=== PATIENT | female | born 1995 | race African-American/Black ===

== ENCOUNTER 2019-01-14 08:40 | Emergency (ER) | payer SELFPAY ==
[2019-01-14 09:53] LABS: BUN Blood Urea Nitrogen 9 mg/dL (7-18); Bicarbonate 26 mmol/L (21-32); Glucose Level 85 mg/dL (74-106); Magnesium 2.4 mg/dL (1.8-2.4); Sodium Level 142 mmol/L (136-145)
[2019-01-14 09:55] LABS: Absolute Lymphocytes (CBC) 1.7 K/uL (0.7-4.9); Absolute Monocytes 0.7 K/uL (0.1-1.3); Absolute Neutrophil 5.4 K/uL (1.8-8.0); Basophils % 0.4 % (0-1.3); Eosinophils % 0.1 % (0-4.4); Lymphocytes % 21.5 % (15.3-44.8); MPV 9.5 fL (7.6-11.3); Monocytes % 9.1 % (3.3-12.3); RBC Red Blood Cell Count 4.27 M/uL (3.86-4.86)
[2019-01-14] MEDS ORDERED: NA CHLORIDE 0.9% 1,000 ML ONE (09:56)
--- NOTE | 2019-01-14 10:45 | ER ---
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 Transition of care: patient was not received from another setting of care. Onset of symptoms was January 14, 2019. Risk Assessment: Do you want to hurt yourself or someone else? Patient reports no desire to harm self or others. Care prior to arrival: None. 08:52 Method Of Arrival: Ambulatory hb 08:52 Acuity: BRIDGER 3 hb 09:15 Initial Sepsis Screen: Does the patient meet any 2 criteria? No. Patient's initial sv sepsis screen is negative. Does the patient have a suspected source of infection? No. Patient's initial sepsis screen is negative. 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 - Social history:: Smoking status: Patient/guardian denies using tobacco. - Ebola Screening: : No symptoms or risks identified at this time. Screenin:55 Abuse screen: Denies threats or abuse. Denies injuries from another. Nutritional sv screening: No deficits noted. Tuberculosis screening: No symptoms or risk factors identified. Fall Risk None identified. Assessment: 09:15 General: Appears in no apparent distress. uncomfortable, slender, well groomed, well sv developed, Behavior is calm, cooperative, appropriate for age. Pain: Denies pain. Neuro: Level of Consciousness is awake, alert, obeys commands, Oriented to person, place, time, situation, Moves all extremities. Full function Gait is steady, Speech is normal. Neuro: Reports blurred vision in right eye and left eye since this morning weakness since this morning. Respiratory: Respiratory effort is even, unlabored, Respiratory pattern is regular, symmetrical. Respiratory: Denies cough, shortness of breath. Derm: Skin is pink, warm \\T\\ dry. Musculoskeletal: Range of motion: intact in all extremities. 09:52 Reassessment: Patient appears in no apparent distress at this time. No changes from sv previously documented assessment. Patient and/or family updated on plan of care and expected duration. Pain level reassessed. Patient is alert, oriented x 3, equal unlabored respirations, skin warm/dry/pink. Vital Signs: 08:57 BP 112 / 85; Pulse 78; Resp 16; Temp 98.1; Pulse Ox 100% on R/A; Pain 0/10; hb 09:19 BP 112 / 62 LA Supine (auto/lg); Pulse 68; sv 09:21 BP 113 / 65 LA Sitting (auto/lg); Pulse 72; sv 09:23 BP 109 / 68 LA Standing (/lg); Pulse 83; sv Visual Acuity: 09:07 Left Eye Visual acuity 20/40, ; Right Eye Visual acuity 20/15, ; Both Eyes Visual sv acuity 20/15; Without Lenses; ED Course: 08:44 Patient arrived in ED. tw3 08:48 Wolf Shook PA is PHCP. cp 08:48 Justin Daniels MD is Attending Physician. cp 08:54 Triage completed. hb 08:54 Wilma Scott, KEVIN is Primary Nurse. sv 08:55 Arm band placed on. sv 08:55 Patient has correct armband on for positive identification. sv 09:15 Pulse ox on. NIBP on. sv 09:15 Initial lab(s) drawn, by il, sent to lab. Inserted saline lock: 20 gauge in right sv antecubital area, using aseptic technique. Blood collected. Flushed right antecubital with 5 ml normal saline. 09:49 EKG done, by outer diameter technician. reviewed by Wolf MANN. at1 10:01 Report given to Kimber BROWN. Door closed. Warm blanket given. Head of bed elevated. sv 10:08 Kimber Mcelroy, KEVIN is Primary Nurse. aj1 10:52 No provider procedures requiring assistance completed. IV discontinued, intact, hb bleeding controlled, No redness/swelling at site. Pressure dressing applied. Administered Medications: 09:52 Drug: NS 0.9% 1000 ml Route: IV; Rate: 1 bolus; Site: right antecubital; sv Outcome: 10:45 Discharge ordered by MD. cp 10:52 Discharged to home ambulatory. hb 10:52 Condition: stable 10:52 Discharge instructions given to patient, Instructed on discharge instructions, follow up and referral plans. Demonstrated understanding of instructions, follow-up care. 10:58 Patient left the ED. hb Signatures: Kimber Mcelroy RN RN aj1 Wilma Scott RN RN sv Minnie Moct[place]uma, shoe sprayer EKG Tat1 Wolf Shook PA PA cp Baxter, Heather RN RN gloria Clarke, Angela tw3
--- NOTE | 2019-01-14 10:46 | EDPHYS ---
Physician Documentation [facility] Name: Stalin Helm Age: 23 yrs Sex: Female : 1995 Arrival Date: 01/14/2019 Time: 08:44 Bed 20 Private MD: ED Physician Justin Daniels HPI: 01/14 09:00 This 23 yrs old Black Female presents to ER via Ambulatory with complaints of General cp Weakness, Blurred Vision. 09:00 The patient is experiencing blurred vision, to both eyes. Onset: The symptoms/episode cp began/occurred this morning. Duration: the symptoms are intermittent. Associated signs and symptoms: Pertinent positives: dizziness, general weakness, Pertinent negatives: ear ache, fever, headache, sinus pain. 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 - Social history:: Smoking status: Patient/guardian denies using tobacco. - Ebola Screening: : No symptoms or risks identified at this time. ROS: 09:05 Constitutional: Positive for fatigue, Negative for body aches, chills, fever, poor PO cp intake, weight loss. 09:05 Eyes: Positive for blurry vision, Negative for discharge, pain, redness, vision loss. 09:05 Cardiovascular: Negative for chest pain, edema, palpitations. 09:05 Respiratory: Negative for cough, shortness of breath, wheezing. 09:05 Abdomen/GI: Negative for abdominal pain, nausea, vomiting, and diarrhea, constipation, anorexia, black/tarry stool, rectal bleeding. 09:05 Back: Negative for pain at rest, pain with movement. 09:05 : Negative for urinary symptoms, vaginal bleeding. 09:05 Skin: Negative for rash. 09:05 Neuro: Positive for dizziness, general weakness, Negative for altered mental status, gait disturbance, headache, speech changes, syncope. 09:05 All other systems are negative. Exam: 09:20 Constitutional: The patient appears in no acute distress, alert, awake, cp non-diaphoretic, non-toxic, well developed, well nourished. 09:20 Head/Face: Normocephalic, atraumatic. cp 09:20 Eyes: Periorbital structures: appear normal, Pupils: equal, round, and reactive to light and accomodation, Extraocular movements: intact throughout, Conjunctiva: normal, no exudate, no injection, Sclera: no appreciated abnormality, Lids and lashes: appear normal, bilaterally. 09:20 ENT: External ear(s): are unremarkable, Ear canal(s): are normal, clear, TM's: are normal, no evidence of bulging, no erythema, dullness, bilaterally, Nose: is normal, Mouth: Lips: moist, Oral mucosa: pink and intact, moist, Posterior pharynx: is normal, airway is patent, no erythema, no exudate. 09:20 Neck: ROM/movement: is normal, is supple, without pain, no range of motions limitations, no meningismus, no nuchal rigidity. 09:20 Chest/axilla: Inspection: normal, Palpation: is normal, no crepitus, no tenderness. 09:20 Cardiovascular: Rate: normal, Rhythm: regular, Heart sounds: murmur, not appreciated, Edema: is not appreciated, JVD: is not appreciated. 09:20 Respiratory: the patient does not display signs of respiratory distress, Respirations: normal, no use of accessory muscles, no retractions, no splinting, no tachypnea, labored breathing, is not present, Breath sounds: are clear throughout, no decreased breath sounds, no stridor, no wheezing. 09:20 Abdomen/GI: Inspection: abdomen appears normal, Palpation: abdomen is soft and non-tender, in all quadrants. 09:20 Back: pain, is absent, ROM is normal. 09:20 Skin: no rash present. 09:20 Neuro: Orientation: to person, place \T\ time. Mentation: is normal, Cerebellar function: is grossly normal, Motor: is normal, Sensation: is normal. 09:34 ECG was reviewed by the Attending Physician. cp Vital Signs: 08:57 BP 112 / 85; Pulse 78; Resp 16; Temp 98.1; Pulse Ox 100% on R/A; Pain 0/10; hb 09:19 BP 112 / 62 LA Supine (auto/lg); Pulse 68; sv 09:21 BP 113 / 65 LA Sitting (auto/lg); Pulse 72; sv 09:23 BP 109 / 68 LA Standing (/lg); Pulse 83; sv Visual Acuity: 09:07 Left Eye Visual acuity 20/40, ; Right Eye Visual acuity 20/15, ; Both Eyes Visual sv acuity 20/15; Without Lenses; MDM: 08:51 Patient medically screened. cp 09:00 Differential diagnosis: dehydration, cardiac arrythmia, electrolyte abnormality, cp , anemia. 10:44 Data reviewed: vital signs, nurses notes, lab test result(s), EKG, and as a result, I cp will discharge patient. 10:44 Test interpretation: by ED physician or midlevel provider: ECG. 10:44 Counseling: I had a detailed discussion with the patient and/or guardian regarding: the cp historical points, exam findings, and any diagnostic results supporting the discharge/admit diagnosis, lab results, the need for outpatient follow up, for definitive care, a family practitioner, to return to the emergency department if symptoms worsen or persist or if there are any questions or concerns that arise at home. 10:44 Response to treatment: Improved, and as a result, I will discharge patient. 01/14 08:53 Order name: Glucose, Ancillary Testing; Complete Time: 08:56 EDMS 01/14 08:56 Interpretation: Reviewed. 01/14 08:58 Order name: Magnesium; Complete Time: 09:57 cp 01/14 08:58 Order name: EKG; Complete Time: 08:58 cp 01/14 08:58 Order name: BMP; Complete Time: 09:57 01/14 09:57 Interpretation: Normal except: CL 109. 01/14 08:58 Order name: CBC with Diff; Complete Time: 09:57 01/14 09:57 Interpretation: Normal except: HGB 9.4; HCT 31.0; MCV 72.4; MCH 22.0; MCHC 30.4; RDW cp 16.5. 01/14 08:58 Order name: Orthostatics; Complete Time: 09:26 cp 01/14 08:58 Order name: EKG - Nurse/Tech; Complete Time: 09:52 cp 01/14 08:58 Order name: Visual Acuity; Complete Time: 09:26 cp EC:34 Rate is 77 beats/min. Rhythm is regular. ME interval is normal. QRS interval is normal. cp QT interval is normal. T waves are Flattened in lead aVL. Interpreted by me. Reviewed by me. Administered Medications: 09:52 Drug: NS 0.9% 1000 ml Route: IV; Rate: 1 bolus; Site: right antecubital; sv Disposition: 11:00 Chart complete. cp 11:03 Co-signature as Attending Physician, Justin Daniels MD. rn Disposition: 01/14/19 10:45 Discharged to Home. Impression: Anemia in chronic diseases classified elsewhere, Weakness - general. - Condition is Stable. - Discharge Instructions: Anemia, Nonspecific, Iron-Rich Diet, Weakness. - Medication Reconciliation Form, Thank You Letter, Antibiotic Education, Prescription Opioid Use form. - Follow up: Private Physician; When: 1 - 2 days; Reason: Recheck today's complaints. - Problem is new. - Symptoms have improved. Signatures: Dispatcher [employer] Wilma Sherman RN RN Justin Damian MD MD rn Page, Corey, PA PA cp Amy Garza RN RN hb Corrections: (The following items were deleted from the chart) 10:58 10:45 01/14/2019 10:45 Discharged to Home. Impression: Anemia in chronic diseases hb classified elsewhere; Weakness - general. Condition is Stable. Forms are Medication Reconciliation Form, Thank You Letter, Antibiotic Education, Prescription Opioid Use. Follow up: Private Physician; When: 1 - 2 days; Reason: Recheck today's complaints. Problem is new. Symptoms have improved. cp
--- NOTE | 2019-01-14 17:16 | EKG ---
Test Date: 2019-01-14 Test Time: 09:31:03 Knitter Hand: MARIA ANTONIA MEASUREMENT RESULTS: Intervals: Rate: 77 SC: 164 QRSD: 74 QT: 362 QTc: 409 [place]: P: 8 SC: 164 QRS: 33 T: 61 INTERPRETIVE STATEMENTS: Normal sinus rhythm Normal ECG Compared to ECG 03/25/2011 09:10:13 No significant changes Electronically Signed On 01-14-19 17:14:44 CDT by [place]
== END 2019-01-14 10:58 | disposition home or self-care (01) ==
LOC: ER 08:40
DX: D63.8 Anemia in other chronic diseases classified elsewhere (principal); R53.1 Weakness
CPT/HCPCS: 36415; 80048; 82962; 83735; 85025; 93005; 99284; J7030